=== PATIENT | female | born 1990 | race African-American/Black ===

== ENCOUNTER 2020-02-07 18:49 | Inpatient (IN) | payer OTHER ==
[2020-02-07] MEDS ORDERED: Lidocaine 1% (PF) 30 ML VIAL SC PRN (19:23)
[2020-02-07] MEDS ORDERED: Ibuprofen 800 MG TAB PO PRN (19:23)
[2020-02-07] MEDS ORDERED: HYDROcodone/Acetaminophen 5/325 mg Tablet PO PRN ×4 (19:23→23:19)
[2020-02-07] MEDS ORDERED: Carboprost 250 MCG/ML AMP IM PRN (19:23)
[2020-02-07] MEDS ORDERED: Ondansetron PF 4 MG/2 ML Vial IVP PRN ×2 (19:23→23:19)
[2020-02-07] MEDS ORDERED: NS / Oxytocin 40 units/1000ml 1,000 ML IV PRN (19:23)
[2020-02-07] MEDS ORDERED: hydrALAZINE 20 MG/ML VIAL SLOW IVP PRN ×2 (19:23→23:19)
[2020-02-07] MEDS ORDERED: Promethazine HCl 25 MG/ML VIAL IM PRN ×2 (19:23→23:19)
[2020-02-07] MEDS ORDERED: Butorphanol Tartrate 1 MG/ML VIAL SLOW IVP PRN (19:23)
[2020-02-07] MEDS ORDERED: Acetaminophen 500 MG TAB PO PRN (19:23)
[2020-02-07] MEDS ORDERED: Methylergonovine 0.2 MG/ML VIAL IM PRN ×2 (19:23→23:19)
[2020-02-07] MEDS ORDERED: Diphenoxylate HCl/Atropine Tablet PO PRN ×2 (19:23)
[2020-02-07] MEDS ORDERED: Misoprostol 200 MCG TAB PR PRN (19:23)
--- NOTE | 2020-02-07 19:33 | PDOC.LDHP ---
Labor and Delivery H&P Chief complaint: contractions HPI: 29 y/o at unknown gestational age with no care who came in for leaking fluid and contractions. She reports the contractions just started. She denies VB or decreased movement. She reports she just found out she was . She has had all deliveries ranging from 26-28 weeks. Thinks she is further along than that. ROS neg for HEENT, cv, pulm, gi, gu, neuro, psych, skin, musculoskeletal or constitutional symptoms other than mentioned above. OB History Details: 3 prior deliveries, all vaginal ranging from 27-30 weeks. Was told it was because they thought she had a short cervix. One baby at 2 months old due to seizures. Had 1 IUFD at 23 weeks. Current complications: other (no care) Past Medical History: Heart murmur Current medications: none Previous surgical history: none Allergies/Adverse Reactions: Allergies Allergy/AdvReac Type Severity Reaction Status Date / Time No Known Allergies Allergy Unverified 04/29/19 15:31 Social history: tobacco use (1 pack lasts several days) - Physical Exam Vital signs reviewed and normal: yes General: NAD, resting Lungs: nonlabored breathing Abdomen: gravid Extremeties: no edema FHT: category 1 (130s, mod variability, + accels, single variable decel) Ayr contractions every: 2-5 mins - Vaginal Exam cm dilated: 6 Effacement: 75% Station: 0 - OB Labs Blood type: O RH: positive - Assessment Unknown gestational age in labor. I performed a bedside ultrasound and measured a femur length of approximately 30 weeks. Awaiting formal ultrasound. Will make clinical decisions based on this information at this time. - Plan Plan: admit to L&D, GBS antibiotic prophylaxis, magnesium for neuroprotection, informed consent obtained, anesthesia consult for pain management -: UDS, Covid-19 pending.
[2020-02-07] MEDS ORDERED: Penicillin G Potassium 5 MILL.UNITS VIAL ONE (19:39)
[2020-02-07 19:45] LABS: Mean Corpuscular HGB CONC 33.5 g/dL (32.0-36.0); Mean Corpuscular Hemoglobin 30.6 pg (27.0-31.0); Mean Corpuscular Volume 91.2 fL (78.0-98.0); Mean Platelet Volume 8.5 fL (7.4-10.4); Platelet Count 203 thou/uL (130-400); RBC Distribution Width 11.4 % (11.5-14.5); Red Blood Cell (RBC) Count 3.59 mill/uL (4.20-5.40); White Blood Cell (WBC) Count 8.5 thou/uL (4.8-10.8)
[2020-02-07] MEDS ORDERED: Betamet Acet/Betamet Na Ph 30 MG/5 ML VIAL ONE (19:51)
[2020-02-07] MEDS ORDERED: Magnesium Sulfate 20 gm/500 ml 20 GM/500 ML BAG ONE (19:51)
[2020-02-07] MEDS ORDERED: Calcium Gluc 4.6 MEQ/10 ML (100 MG/ML) SLOW IVP PRN (19:52)
[2020-02-07] MEDS ORDERED: Betamet Acet/Betamet Na Ph 30 MG/5 ML VIAL IM SCH (20:00)
[2020-02-07] MEDS ORDERED: Lactated Ringer's 1,000 ML IV SCH (20:00)
[2020-02-07] MEDS ORDERED: Penicillin G Potassium 5 MILL.UNITS in Sodium Chloride 0.9% 100 ML IVPB SCH (20:00)
[2020-02-07 20:22] LABS: HBSAg Index 0.18 S/CO (0-0.99); Hep B Surf Ag Non-Reactive S/CO (NonReactive); Syphilis Antibody Nonreactive (Nonreactive); Syphilis Antibody Index 0.04 S/CO (<1.00 Non-Reactive)
[2020-02-07] MEDS ORDERED: Lidocaine 1% (PF) 30 ML VIAL ONE (20:24)
[2020-02-07] MEDS ORDERED: Oxytocin 10 UNITS/ML VIAL ONE (20:26)
[2020-02-07] MEDS ORDERED: Magnesium Sulfate 20 GM/WATER 500 ML BAG IVPB SCH (20:30)
[2020-02-07 20:36] LABS: SARS-CoV-2 NAA Rapid Test Not Detected (NotDetected)
--- NOTE | 2020-02-07 20:38 | PDOC.OPDEL ---
OB Operative/Delivery Note Delivery Dr/Surgeon: Catarina Pre-Delivery Diagnosis: active labor Procedure/Post Delivery Dx: spontaneous vaginal delivery Weeks gestation: 32 Anesthesia: none - Findings A Sex: female Weight: 4 lb 4.961 oz - 1 min: 8 - 5 min: 9 - Additional Findings/Plan Placenta delivered: spontaneous Repaired Obstetrical Laceration: none Estimated blood loss: 30 Post delivery plan: routine recovery
[2020-02-07] MEDS ORDERED: NS w/ Oxytocin 30 units 500 ML IV SCH ×2 (20:45)
[2020-02-07 20:58] LABS: Actual Bicarbonate (HCO3a) 25.8 mEq/L (22-28); Base Excess (BEa) -3.1 mEq/L (-2.0 to +3.0)
[2020-02-07 21:00] LABS: Actual Bicarbonate (HCO3v) 23 mEq/L (22-28); Base Excess -3.1 mEq/L (-2.0 to +3.0); pH (Cord, venous) 7.33 (7.32-7.43)
[2020-02-07] MEDS ORDERED: Magnesium Sulfate 20 gm/500 ml 20 GM/500 ML BAG IVPB SCH (21:00)
[2020-02-07 21:09] LABS: Amphetamine Not Detected (NotDetected); Barbiturates Screen Not Detected (NotDetected); Benzodiazepine Screen Not Detected (NotDetected); Cocaine Metabolite Screen Not Detected (NotDetected); Medtox Control Line Valid? VALID (VALID); Medtox Reader # READER 1; Methadone Not Detected (NotDetected); Methamphetamine Not Detected (NotDetected); Opiate Screen Not Detected (NotDetected); Oxycodone Screen Not Detected (NotDetected); Phencyclidine (PCP) Not Detected (NotDetected); THC/Cannabinoid Screen Not Detected (NotDetected); Tricyclic Screen Not Detected (NotDetected)
[2020-02-07 22:31] VITALS: BMI 32.3
[2020-02-07 23:09] LABS: HIV (1/2) Antibody/Antigen Non-Reactive (NonReactive)
[2020-02-07] MEDS ORDERED: Milk Of Magnesia 30 ML UDCUP PO PRN (23:19)
[2020-02-07] MEDS ORDERED: Bisacodyl 10 MG SUPP PR PRN (23:19)
[2020-02-07] MEDS ORDERED: Zolpidem Tartrate 5 MG TAB PO PRN (23:19)
[2020-02-07] MEDS ORDERED: Benzocaine-Menthol 82.5 ML CAN TOP PRN (23:19)
[2020-02-07] MEDS ORDERED: diphenhydrAMINE 25 MG CAP PO PRN (23:19)
[2020-02-07] MEDS ORDERED: Preparation H Ointment 28 GM TUBE PR PRN (23:19)
[2020-02-07] MEDS ORDERED: Misoprostol 200 MCG TAB VAG PRN (23:19)
[2020-02-07] MEDS ORDERED: Lanolin Ointment 7 GM TUBE TOP PRN (23:19)
[2020-02-07] MEDS ORDERED: NS / Oxytocin 40 units/1000ml 1,000 ML IV SCH (23:59)
[2020-02-08] MEDS: Ibuprofen 800 MG TAB PO SCH ×4 (00:34→21:51)
[2020-02-08] MEDS ORDERED: Penicillin G 2.5 MILL.units 2.5 MILL.UNITS in Premix Bag 1 BAG IVPB SCH (01:00)
--- NOTE | 2020-02-08 07:22 | PDOC.PP ---
Post Progress Note Post Day #: 1 Subjective: Denies pain. Has been ambulating and tolerating PO. Denies heavy VB. Has breastfed with prior infants and interested in trying to pump. Baby is in NICU. PO intake tolerated: yes Flatus: yes Ambulation: yes Vital Signs (12 hours) Temp Pulse Resp BP Pulse Ox 02/08/20 05:15 98.1 F 69 15 106/60 02/08/20 01:20 98.1 F 63 15 116/61 02/08/20 00:20 98.3 F 72 15 123/71 02/07/20 23:20 98.2 F 59 L 17 118/77 02/07/20 19:34 98.9 F 78 20 135/88 97 Weight Weight 90.718 kg - Physical Examination General: NAD Cardiovascular: no m/r/g, RRR Respiratory: clear to auscultation bilaterally, non-labored breathing Abdominal: + bowel sounds, appropriately TTP Fundus firm & at: below umbilicus Neurological: no gross focal deficits Psychiatric: A&Ox3, normal affect Result Diagrams: 02/07/20 19:29 Additional Labs: Post Labs Hep Bs Antigen Non-Reactive S/CO (NonReactive) 02/07/20 19:29 Blood Type O POSITIVE 02/07/20 19:29 - Assessment/Plan 29yo female delivered at approx 32wks - PPD #1 - complicated by no care and hx of deliveries. Baby in NICU - Continue routine care. Ordered breastpump in room. Dispo: Likely dc to bed and breakfast tomorrow Addendum - Attending - Attending Attestation Date/Time: 02/08/20 [id number] I personally evaluated the patient and discussed the management with Dr. Young. I agree with the History, Examination, Assessment and Plan documented above. A waiting case management consult. Anticipate B&B tomorrow.
[2020-02-08] MEDS: Ferrous Sulfate 325 MG TAB PO SCH ×2 (08:14→17:51)
[2020-02-08] MEDS ORDERED: Varicella virus, LIVE 0.5 ML VIAL SC ONE (09:00)
[2020-02-08] MEDS ORDERED: Measles/Mumps/Rubella 10 MCG/0.5 ML VIAL SC ONE (09:00)
[2020-02-08] MEDS ORDERED: Adacel (T-DAP) 0.5 ML SYRINGE IM ONE (09:00)
[2020-02-08] MEDS: Docusate Calcium (SURFAK) 240 MG CAP PO SCH ×2 (09:54→21:51)
[2020-02-08] MEDS: Prenatal Vitamin 1 TAB PO SCH (09:54)
[2020-02-09] MEDS: Ibuprofen 800 MG TAB PO SCH (05:03)
[2020-02-09 08:56] VITALS: BP 105/53; TEMP 98.3
[2020-02-09] MEDS: Prenatal Vitamin 1 TAB PO SCH (09:49)
[2020-02-09] MEDS: Docusate Calcium (SURFAK) 240 MG CAP PO SCH (09:49)
[2020-02-09] MEDS: Ferrous Sulfate 325 MG TAB PO SCH (09:50)
== END 2020-02-09 12:00 | disposition home or self-care (01) | DRG 807 ==
LOC: L&D/OP 18:49 → L&D 19:23 → 3SW 02-08 00:09
PROVIDERS: ADMIT Obstetrics & Gynecology; ATTEND Obstetrics & Gynecology
PROC: 10E0XZZ Delivery of Products of Conception, External Approach (ICD-10-PCS; principal; 2020-02-07)
DX: O60.14X0 Preterm labor third trimester with preterm delivery third trimester, not applicable or unspecified (principal); Z37.0 Single live birth; Z3A.32 32 weeks gestation of pregnancy; O62.3 Precipitate labor; Z20.822 Contact with and (suspected) exposure to COVID-19
CPT/HCPCS: 36415; 51702; 76815; 80306; 82805; 85027; 86780; 86850; 86900; 86901; 87340; 87389; 88307; 99285; J0702; J2001; J2540; J2590; J3475; J3490; U0002